=== PATIENT | male | born 1950 | race Caucasian/White ===

== ENCOUNTER 2020-08-11 14:48 | Observation (INO) | payer MEDICARE ==
[2020-08-11 16:13] LABS: Troponin I Less than 0.010 ng/mL (< 0.028)
[2020-08-11] MEDS ORDERED: Acetaminophen 325 MG TAB PO PRN (16:40)
[2020-08-11] MEDS ORDERED: Senokot S 8.6-50 MG TAB PO PRN (16:40)
[2020-08-11] MEDS ORDERED: HYDROcodone/Acetaminophen 5/325 mg Tablet PO PRN ×2 (16:40)
[2020-08-11] MEDS ORDERED: Melatonin 3 MG TAB PO PRN (16:47)
--- NOTE | 2020-08-11 18:48 | PDOC.HHP ---
Hospitalist HPI - History of Present Illness chest pain History of Present Illness: 70M here for sharp left sided chest pain which started this AM and lasted for several hours. He reports that [place], became dizzy and lightheaded and was afraid of something happening to him and he did not have anyone around to help him. So, he decided to go to the ED in [place] to get checked out. In the ED in [place], he was given ASA and Nitroglycerin and his chest pain stopped. He reports a runny nose but no other symptoms. He states he has a PMH of dyslipidemia but no other medical issues. He takes medicine for his cholesterol. He denied nausea/vomiting, diaphoresis, or SOB. Troponin was been negative, EKG was non-specific. He will be admitted for ACS r/o. Hospitalist ROS - Review of Systems Constitutional: denies: fever, chills, sweats, weakness, malaise, other Eyes: denies: pain, vision change, conjunctivae inflammation, eyelid inflammation, redness, other ENT: reports: nose discharge, nose congestion Respiratory: denies: cough, dry, shortness of breath, hemoptysis, SOB with excertion, pleuritic pain, sputum, wheezing, other Cardiovascular: reports: chest pain, light headedness Gastrointestinal: denies: nausea, vomiting, abdominal pain, diarrhea, constipation, melena, hematochezia, other Genitourinary: denies: dysuria, frequency, incontinence, hematuria, retention, other Musculoskeletal: denies: neck pain, shoulder pain, arm pain, back pain, hand pain, leg pain, foot pain, other Skin: denies: rash, lesions, ann, bruising, other Neurological: denies: weakness, numbness, incoordination, change in speech, confusion, seizures, other - Medication Medications: Lipitor 20mg po daily Potassium 75mg po hs Vitamin B12 100mcg po daily Hospitalist History - Past Medical History Source: patient Cardiac: reports: Hyperlipidemia Pulmonary: reports: no pertinent history [employer]: reports: no pertinent history Gastrointestinal: reports: no pertinent history, Diverticulosis, Other (divert iculitis requiring part of his colon to be removed) Heme/Onc: reports: no pertinent history Musculoskeletal: reports: Other (leg cramps) Rheumatologic: denies: no pertinent history, Fibromyalgia, Gout, Rheumatoid arthritis, Vasculitis, Other ENT: reports: no pertinent history Endocrine: reports: no pertinent history Dermatology: reports: no pertinent history - Past Surgical History Past Surgical History: reports: Other (colon resection) - Family History Family History: reports: no pertinent history - Social History Smoking Status: Current every day smoker Tobacco Type: cigars Alcohol: reports: Occassional Drugs: reports: none Living Situation: With Family Activity level: independent ambulation - Exam General Appearance: awake alert Eye: PERRL, anicteric sclera ENT: normocephalic atraumatic, moist mucosa Neck: supple, no JVD Heart: RRR, normal peripheral pulses Respiratory: CTAB, normal chest expansion Gastrointestinal: soft, non-tender Extremities: no edema Skin: normal turgor Neurological: cranial nerve grossly intact Musculoskeletal: normal tone, normal strength Psychiatric: normal affect, A&O x 3 Hospitalist Results - Labs Lab results: Troponin I Less than 0.010 ng/mL (< 0.028) 08/11/20 15:29 - EKG Interpretation EKG: NSR, T waved flattened aVl, V2 otherwise non-specific Hospitalist H&P A/P - Problem (1) Hyperlipemia Code(s): E78.5 - HYPERLIPIDEMIA, UNSPECIFIED Status: Chronic (2) Chest pain Code(s): R07.9 - CHEST PAIN, UNSPECIFIED Status: Acute (3) Diverticula, colon Code(s): K57.30 - DVRTCLOS OF LG INT W/O PERFORATION OR ABSCESS W/O BLEEDING Status: Acute (4) Smoker Code(s): F17.200 - NICOTINE DEPENDENCE, UNSPECIFIED, UNCOMPLICATED Status: Acute - Plan Plan: 70M presents to the hospital for chest pain and ACS r/o #chest pain Trend troponins Stress test ASA 81mg daily TSH and fasting lipids Monitored bed #Hyperlipdemia Check fasting lipids Restart home meds GI and DVT prevention Discussed case with Dr. Weinberg; agrees with plan
[2020-08-11 19:22] LABS: Troponin I Less than 0.010 ng/mL (< 0.028)
[2020-08-11] MEDS ORDERED: Famotidine 20 MG TAB PO SCH (21:00)
[2020-08-11] MEDS ORDERED: Atorvastatin Calcium 20 MG TAB PO SCH (21:00)
[2020-08-11] MEDS ORDERED: Famotidine 20 MG TAB ONE (22:09)
[2020-08-11] MEDS ORDERED: Acetaminophen 325 MG TAB ONE (22:14)
[2020-08-11 22:41] LABS: Troponin I Less than 0.010 ng/mL (< 0.028)
[2020-08-12 04:39] LABS: #Eosinphils 0.1 thou/uL (0.0-0.7); #Lymphocytes 1.3 thou/uL (1.20-3.40); #Monocytes 0.8 thou/uL (0.11-0.59); #Neutrophils 3.2 thou/uL (1.40-6.50); %Basophils 0.5 % (0.0-1.0); %Eosinophils 2.3 % (0.0-10.0); %Monocytes 14.9 % (0.0-10.0); %Neutrophils 58.3 % (42.0-75.0); Hemoglobin 13.7 g/dL (14.0-18.0); Mean Corpuscular HGB CONC 33.2 g/dL (32.0-36.0); Mean Corpuscular Hemoglobin 32.7 pg (27.0-31.0); Mean Corpuscular Volume 98.5 fL (78.0-98.0); Mean Platelet Volume 8.4 fL (7.4-10.4); Platelet Count 131 thou/uL (130-400); RBC Distribution Width 11.9 % (11.5-14.5); White Blood Cell (WBC) Count 5.5 thou/uL (4.8-10.8)
[2020-08-12 05:03] LABS: SARS-CoV-2 MS2 Positive; SARS-CoV-2 N Gene Positive; SARS-CoV-2 S Gene Positive; SARS-CoV-2 by NAA DETECTED (NotDetected); SARS-CoV-2 orf1ab Positive
[2020-08-12 05:06] LABS: ALT (SGPT) 39 U/L (8-55); AST (SGOT) 39 U/L (5-34); Albumin 3.8 g/dL (3.4-4.8); Alkaline Phosphatase 44 U/L (40-110); Anion Gap 11 mmol/L (10-20); BUN (Urea Nitrogen) 10 mg/dL (8.4-25.7); Bilirubin, Total 0.5 mg/dL (0.2-1.2); Calc. Creatinine Clearance 0 mL/min (70-130); Calcium 8.7 mg/dL (7.8-10.44); Carbon Dioxide 27 mmol/L (23-31); Cardiac Risk 2.5 (Less than 4.5); Chloride 101 mmol/L (98-107); Cholesterol 130 mg/dl (< 200 Desired); Estimated GFR-MDRD 72; Globulin 3.3 g/dL (2.4-3.5); Glucose 98 mg/dL (80-115); HDL Cholesterol 52 mg/dL (>60 Neg Risk); LDL Cholesterol, Calculated 53 mg/dL; Potassium 4.1 mmol/L (3.5-5.1); Protein, Total 7.1 g/dL (5.8-8.1); Sodium 135 mmol/L (136-145); Triglycerides 124 mg/dL (Less than 150)
[2020-08-12] MEDS ORDERED: Enoxaparin Sodium 40 MG/0.4 ML SYRINGE SC SCH (09:00)
--- NOTE | 2020-08-13 01:01 | DIS ---
DATE OF ADMISSION: 08/11/2020 DATE OF DISCHARGE: 08/12/2020 DISCHARGE DIAGNOSES: 1. COVID-19 infection. 2. Chest pain. 3. Hyperlipidemia. DISCHARGE MEDICATIONS: No new discharge medications. HISTORY OF PRESENT ILLNESS AND HOSPITAL COURSE: The patient is a 70-year-old male, who presented to the hospital with complaints of generalized weakness and chest pain and dry cough that started the day prior to presentation. He was placed in observation and EKG did not show any ST elevations. Serial troponins were unremarkable. The patient tested positive for COVID-19, but his oxygenation remained within normal limits. He was discharged home and quarantine was recommended for 10-14 days. Job ID: [id number]
== END 2020-08-12 11:21 | disposition home or self-care (01) ==
LOC: ERS 14:48 → ERHOLD 15:52
PROVIDERS: ADMIT Internal Medicine; ATTEND Internal Medicine
DX: U07.1 COVID-19 (principal); R07.9 Chest pain, unspecified; E78.5 Hyperlipidemia, unspecified; K57.30 Diverticulosis of large intestine without perforation or abscess without bleeding; F17.290 Nicotine dependence, other tobacco product, uncomplicated; Z79.899 Other long term (current) drug therapy
CPT/HCPCS: 80061; 84484; 93005; 99285; G0378 ×2; U0003; 36415; 80053; 84443; 85025; 87635

== ENCOUNTER 2024-07-01 10:47 | Inpatient (IN) | payer MEDICARE ==
[2024-07-01] MEDS ORDERED: Acetaminophen 650 MG Suppository PR PRN (12:18)
[2024-07-01] MEDS ORDERED: Acetaminophen 325 MG TAB PO PRN (12:18)
[2024-07-01] MEDS ORDERED: Ondansetron PF 4 MG/2 ML Vial IVP PRN (12:18)
[2024-07-01] MEDS ORDERED: Morphine 2 MG/ML VIAL SLOW IVP PRN (13:00)
[2024-07-01] MEDS: Sodium Chloride 0.9% 1,000 ML IV SCH (13:03)
[2024-07-01] MEDS: Famotidine/PF 20 mg/2ml Vial SLOW IVP SCH (21:03)
[2024-07-02 04:26] LABS: #Basophils 0.03 10x3/uL (0.0-0.2); %Basophils 0.4 % (0.0-1.0); %Eosinophils 3.9 % (0.0-10.0); %Lymphocytes 22.1 % (21.0-51.0); %Monocytes 10.6 % (0.0-10.0); %Neutrophils 62.7 % (42.0-75.0); Hematocrit 40.8 % (42.0-52.0); Hemoglobin 13.4 g/dL (14.0-18.0); Mean Corpuscular HGB CONC 32.8 g/dL (32.0-36.0); Mean Corpuscular Hemoglobin 32.3 pg (27.0-31.0); Mean Corpuscular Volume 98.3 fL (78.0-98.0); Mean Platelet Volume 10.9 fL (7.4-10.4); Platelet Count 141 10x3/uL (130-400); RBC Distribution Width 13.1 % (11.5-14.5); Red Blood Cell (RBC) Count 4.15 mill/uL (4.70-6.10)
[2024-07-02 04:59] LABS: ALT (SGPT) 24 U/L (8-55); AST (SGOT) 20 U/L (5-34); Albumin 3.4 g/dL (3.4-4.8); Alkaline Phosphatase 43 U/L (40-110); Anion Gap 8 mmol/L (10-20); BUN (Urea Nitrogen) 16 mg/dL (8.4-25.7); Calc. Creatinine Clearance 79 mL/min (70-130); Calcium 8.6 mg/dL (7.8-10.44); Carbon Dioxide 27 mmol/L (23-31); Chloride 105 mmol/L (98-107); Estimated GFR 70; Glucose 115 mg/dL (83-110); Potassium 3.7 mmol/L (3.5-5.1); Protein, Total 6.4 g/dL (5.8-8.1); Sodium 136 mmol/L (136-145)
[2024-07-03 05:12] VITALS: BMI 26.4
[2024-07-03 06:27] LABS: Anion Gap 15 mmol/L (10-20); BUN (Urea Nitrogen) 15 mg/dL (8.4-25.7); Calc. Creatinine Clearance 75 mL/min (70-130); Calcium 8.7 mg/dL (7.8-10.44); Carbon Dioxide 25 mmol/L (23-31); Chloride 102 mmol/L (98-107); Estimated GFR 67; Glucose 101 mg/dL (83-110); Potassium 3.6 mmol/L (3.5-5.1); Sodium 138 mmol/L (136-145)
[2024-07-03 06:35] LABS: #Basophils 0.04 10x3/uL (0.0-0.2); %Basophils 0.6 % (0.0-1.0); %Eosinophils 6.4 % (0.0-10.0); %Lymphocytes 29.4 % (21.0-51.0); %Monocytes 11.3 % (0.0-10.0); %Neutrophils 51.7 % (42.0-75.0); Hematocrit 38.9 % (42.0-52.0); Hemoglobin 12.4 g/dL (14.0-18.0); Mean Corpuscular HGB CONC 31.9 g/dL (32.0-36.0); Mean Corpuscular Hemoglobin 32.6 pg (27.0-31.0); Mean Corpuscular Volume 102.4 fL (78.0-98.0); Mean Platelet Volume 10.7 fL (7.4-10.4); Platelet Count 139 10x3/uL (130-400); RBC Distribution Width 12.8 % (11.5-14.5)
[2024-07-03] MEDS: Enoxaparin 40 MG (0.4 mL) SYRINGE SC SCH (08:39)
[2024-07-03 08:46] VITALS: BP 132/80; TEMP 98
== END 2024-07-03 11:26 | disposition home or self-care (01) | DRG 389 ==
LOC: MSONC 11:42
PROVIDERS: ADMIT Internal Medicine; ATTEND Hospitalist
PROC: 0D9670Z Drainage of Stomach with Drainage Device, Via Natural or Artificial Opening (ICD-10-PCS; principal; 2024-07-01)
DX: K56.600 Partial intestinal obstruction, unspecified as to cause (principal); N17.9 Acute kidney failure, unspecified; E78.5 Hyperlipidemia, unspecified; K57.90 Diverticulosis of intestine, part unspecified, without perforation or abscess without bleeding; N18.9 Chronic kidney disease, unspecified; I12.9 Hypertensive chronic kidney disease with stage 1 through stage 4 chronic kidney disease, or unspecified chronic kidney disease; Z90.49 Acquired absence of other specified parts of digestive tract
CPT/HCPCS: 36415; 74018; 74250; 80048; 80053; 83735; 85025; J1650; J3490; J7030